=== PATIENT | female | born 1970 | race American Indian/Alaskan Native ===

== ENCOUNTER 2018-09-13 15:50 | Emergency (ER) | payer BC ==
[2018-09-13 16:05] VITALS: BP 116/54
--- NOTE | 2018-09-13 16:06 | Emergency Department Report ---
Blank Doc - Documentation Documentation: This is a 48-year-old female that presents with SOB and dizziness. Denies any CP. This initial assessment/diagnostic orders/clinical plan/treatment(s) is/are subject to change based on patient's health status, clinical progression and re- assessment by fellow clinical providers in the ED. Further treatment and workup at subsequent clinical providers discretion. Patient/guardians urged not to elope from the ED as their condition may be serious if not clinically assessed a nd managed. Initial orders include: 1- Patient sent to [facility] for further evaluation and treatment 2- labs 3- EKG 4- CXR
[2018-09-13 16:17] LABS: Basophils % (Auto) 0.7 % (0.0-1.8); Eosinophils % (Auto) 0.2 % (0.0-4.3); Hematocrit 33.1 % (30.3-42.9); Hemoglobin 10.8 gm/dl (10.1-14.3); Lymphocytes # (Auto) 1.8 K/mm3 (1.2-5.4); Lymphocytes % (Auto) 33.7 % (13.4-35.0); Mean Corpuscular HGB Conc 33 % (30-34); Monocytes # (Auto) 0.4 K/mm3 (0.0-0.8); Platelet Count 256 K/mm3 (140-440); Red Cell Distribution Width 16.9 % (13.2-15.2)
[2018-09-13 16:19] LABS: Mean Corpuscular Volume 68 fl (79-97)
[2018-09-13 16:31] LABS: BUN/Creatinine Ratio 14; Blood Urea Nitrogen 7 mg/dL (7-17); Calcium 8.4 mg/dL (8.4-10.2); Hemolysis Index 6
--- NOTE | 2018-09-13 17:59 | Emergency Department Report ---
ED Shortness of Breath HPI - General Chief Complaint: Dyspnea/Respdistress Stated Complaint: SOB/NO ENERGY Time Seen by Provider: 09/13/18 16:04 Source: patient Mode of arrival: Ambulatory Limitations: No Limitations - History of Present Illness Initial Comments: This is a 48-year-old -[place]ian female presents with shortness of breath for one week. Patient states 2 weeks ago she was seen in her doctor's office for shortness of breath and weakness and diagnosed with iron deficiency. Patient states she was started on Integra iron pills which she takes daily. She also reports a stomach virus with nausea and vomiting about one week ago. She was also seen in the dentist office last and had a root canal and placed on Augmentin. Patient states her period started last night and weakness increased. Patient states began "I feel so tired with no energy". She denies chest pain, fever, cough, nausea or vomiting, lightheadedness, or dizziness. MD Complaint: shortness of breath Onset/Timin -: week(s) Pain Scale: 0 Consistency: intermittent Improves With: nothing Worsens With: exertion Associated Symptoms: denies other symptoms Treatments Prior to Arrival: none - Related Data Home Oxygen Therapy: No Previous Rx's Medication Instructions Recorded Last Taken Type Azithromycin [Zithromax Z-JOAN] 250 mg PO DAILY #6 tablet 08/23/16 Unknown Rx Benzonatate [Tessalon Perles] 100 mg PO Q8HR #20 capsule 08/23/16 Unknown Rx Allergies Allergy/AdvReac Type Severity Reaction Status Date / Time No Known Allergies Allergy Unverified 08/23/16 05:24 ED Review of Systems ROS: Stated complaint: SOB/NO ENERGY Other details as noted in HPI Constitutional: weakness. denies: chills, fever Respiratory: denies: cough, shortness of breath, wheezing Cardiovascular: denies: chest pain, palpitations Gastrointestinal: denies: abdominal pain, nausea, diarrhea Musculoskeletal: denies: back pain, joint swelling, arthralgia Skin: denies: rash, lesions Neurological: denies: headache, weakness, paresthesias Psychiatric: denies: anxiety, depression ED Past Medical Hx - Past Medical History Previous Medical History?: No Additional medical history: low Hemoglobin - Surgical History Past Surgical History?: No - Social History Smoking Status: Never Smoker Substance Use Type: None - Medications Home Medications: Home Medications Medication Instructions Recorded Confirmed Last Taken Type Azithromycin [Zithromax Z-JOAN] 250 mg PO DAILY #6 tablet 08/23/16 Unknown Rx Benzonatate [Tessalon Perles] 100 mg PO Q8HR #20 capsule 08/23/16 Unknown Rx ED Physical Exam - General Limitations: No Limitations General appearance: alert, in no apparent distress, obese (morbidly obese) - Respiratory Respiratory exam: Present: normal lung sounds bilaterally. Absent: respiratory distress - Cardiovascular Cardiovascular Exam: Present: regular rate, normal rhythm. Absent: systolic murmur, diastolic murmur, rubs, gallop - GI/Abdominal GI/Abdominal exam: Present: soft, normal bowel sounds - Neurological Exam Neurological exam: Present: alert, oriented X3, normal gait - Psychiatric Psychiatric exam: Present: normal affect, normal mood - Skin Skin exam: Present: warm, dry, intact, normal color. Absent: rash ED Course Vital Signs 09/13/18 15:59 Temperature 98 F Pulse Rate 57 L Respiratory 18 Rate Blood Pressure 116/54 O2 Sat by Pulse 100 Oximetry ED Medical Decision Making - Lab Data Result diagrams: 09/13/18 16:09 09/13/18 16:09 Lab Results 09/13/18 09/13/18 Range/Units 16:09 16:09 WBC 5.2 (4.5-11.0) K/mm3 RBC 4.90 (3.65-5.03) M/mm3 Hgb 10.8 (10.1-14.3) gm/dl Hct 33.1 (30.3-42.9) % MCV 68 L (79-97) fl MCH 22 L (28-32) pg MCHC 33 (30-34) % RDW 16.9 H (13.2-15.2) % Plt Count 256 (140-440) K/mm3 Lymph % (Auto) 33.7 (13.4-35.0) % [place] % (Auto) 8.0 H (0.0-7.3) % Eos % (Auto) 0.2 (0.0-4.3) % Baso % (Auto) 0.7 (0.0-1.8) % Lymph # 1.8 (1.2-5.4) K/mm3 [place] # 0.4 (0.0-0.8) K/mm3 Eos # 0.0 (0.0-0.4) K/mm3 Baso # 0.0 (0.0-0.1) K/mm3 Seg Neutrophils % 57.4 (40.0-70.0) % Seg Neutrophils # 3.0 (1.8-7.7) K/mm3 Sodium 139 (137-145) mmol/L Potassium 3.7 (3.6-5.0) mmol/L Chloride 104.1 (98-107) mmol/L Carbon Dioxide 26 (22-30) mmol/L Anion Gap 13 mmol/L BUN 7 (7-17) mg/dL Creatinine 0.5 L (0.7-1.2) mg/dL Estimated GFR > 60 ml/min BUN/Creatinine Ratio 14 % Glucose 116 H (65-100) mg/dL Calcium 8.4 (8.4-10.2) mg/dL - EKG Data -: No EKG Interpreted by Me (EKG interpreted by attending) Rate: bradycardia (no STEMI) - Radiology Data Radiology results: report reviewed PROCEDURE: XR CHEST ROUTINE 2V TECHNIQUE: PA and lateral views of the chest HISTORY: Dyspnea COMPARISONS: No prior studies are made available for comparison at this time. FINDINGS: There is no evidence of infiltrate, pneumothorax or pleural fluid collection. There is the appearance of an approximately 8.6 mm nodular density projected in the right lateral costophrenic angle on the PA view. Whether or not this is real or artifact is unclear. The cardiomediastinal silhouette is normal in appearance. The bony structures are notable for the appearance of loss of height of what appears to be the T10- T11 disc. Visualization of detail is limited by overlapping structures. IMPRESSION: 1. No plain film evidence of an acute pulmonary process. 2. Appearance of approximately 8.6 mm nodular density projected in the lateral costophrenic angle on the PA view. Real versus artifact. Repeat imaging with nipple markers may be helpful. Alternatively CT chest may be helpful. 3. Appearance of loss of height of what appears to be the T10-T11 disc. If further imaging is required, CT thoracic spine may be helpful. - Medical Decision Making Patient was examined by this provider in fast track. Vitals are normal and patient is in no acute distress. Obtained labs and chest x-ray. All labs are unremarkable. Chest x-ray dictated by radiologist and report reviewed by myself with no acute cardiopulmonary findings. Patient informed of results. 1. No plain film evidence of an acute pulmonary process. 2. Appearance of approx imately 8.6 mm nodular density projected in the lateral costophrenic angle on the PA view. Real versus artifact. Repeat imaging with nipple markers may be helpful. Alternatively CT chest may be helpful. 3. Appearance of loss of height of what appears to be the T10-T11 disc. If further imaging is required, CT thoracic spine may be helpful. Discussed results with patient and informed of need for CT of chest. Patient refused, states she need to pick her children up from daycare. She will follow up with PCP Dr. Tabares. Patient discharged home in stable condition. Follow up with PCP in 2-3 days. Critical care attestation.: If time is entered above; I have spent that time in minutes in the direct care of this critically ill patient, excluding procedure time. ED Disposition Clinical Impression: Dyspnea on exertion Disposition: DC- TO HOME OR SELFCARE Is pt being admited?: No Does the pt Need Aspirin: No Condition: Stable Instructions: Dyspnea (ED) Additional Instructions: Follow-up with your primary care provider to have a CT of chest. Return to the emergency room if increased shortness of breath, chest pain, palpitations, or lightheadedness. Referrals: IVAN REYES MD [Primary Care Provider] - 3-5 Days Forms: Work/School Release Form(ED) Time of Disposition: 18:49
--- NOTE | 2018-09-13 18:37 | XRay Report ---
PROCEDURE: XR CHEST ROUTINE 2V TECHNIQUE: PA and lateral views of the chest HISTORY: Dyspnea COMPARISONS: No prior studies are made available for comparison at this time. FINDINGS: There is no evidence of infiltrate, pneumothorax or pleural fluid collection. There is the appearance of an approximately 8.6 mm nodular density projected in the right lateral cos tophrenic angle on the PA view. Whether or not this is real or artifact is unclear. The cardiomediastinal silhouette is normal in appearance. The bony structures are notable for the appearance of loss of height of what appears to be the T10-T1 1 disc. Visualization of detail is limited by overlapping structures. IMPRESSION: 1. No plain film evidence of an acute pulmonary process. 2. Appearance of approximately 8.6 mm nodular density projected in the lateral costophrenic angle on the PA view. Real versus artifact. Repeat imaging with nipple markers may be helpful. Alternatively CT chest may be helpful. 3. Appearance of loss of height of what appears to be the T10-T11 disc. If further imaging is required, CT thoracic spine may be helpful. This document is electronically signed by Gracie Deluca MD., September 13 2018 06:35:33 PM ET
== END 2018-09-13 18:53 | disposition home or self-care (01) ==
LOC: ED 15:50
DX: R06.01 Orthopnea (principal)
CPT/HCPCS: 36415; 71046; 80048; 85025; 93005; 93010